=== PATIENT | male | born 1955 | race African-American/Black ===

== ENCOUNTER 2022-07-03 12:10 | Outpatient (CLI) | payer OTHER, MEDICAID | END 2022-07-03 12:11 | disposition home or self-care (01) | LOC: CSHCP 12:10 | PROVIDERS: ATTEND Internal Medicine Critical Care Medicine | DX: J44.9 Chronic obstructive pulmonary disease, unspecified (principal) | CPT/HCPCS: 94060; 94726; 94729; 94760 ==

== ENCOUNTER 2022-07-06 09:19 | Outpatient (CLI) | payer OTHER, MEDICAID ==
[2022-07-06] MEDS ORDERED: Magnevist 469MG/ML 20 ML VIAL ONE (15:14)
== END 2022-07-06 09:20 | disposition home or self-care (01) ==
LOC: CSHMRI 09:19
PROVIDERS: ATTEND Urology
DX: C61 Malignant neoplasm of prostate (principal); N40.2 Nodular prostate without lower urinary tract symptoms
CPT/HCPCS: 72197; 82565; A9579